=== PATIENT | male | born 1965 | race Caucasian/White ===

== ENCOUNTER 2019-04-06 09:00 | Emergency (ER) | payer OTHER ==
[~2019-04-06] VITALS: Ht 177.8 cm; Wt 97.5 kg
[~2019-04-06 09:00] MED LIST: CIALIS10 MG PO; FLEXERIL PO; GENTAMICIN SU3 MG/ML OPHTHALMIC; HYDROCODONE-AP1 EAC6 PO; IBUPROFEN 800800 M1 PO; LORTAB 5 MG/5001 TAB PO; NOHOMEMEDICATIONS; RELAFEN500 MG PO
[2019-04-06] MEDS ORDERED: BLOOD PRESSURE MED (09:09)
[2019-04-06] MEDS ORDERED: HYDROCODONE-AP1 EAC6 PO (09:57)
[2019-04-06 10:04] VITALS: BP 157/99
== END 2019-04-06 10:04 | disposition home or self-care (01) ==
LOC: M.ERS 09:00
DX: S61.012A Laceration without foreign body of left thumb without damage to nail, initial encounter (principal); I10 Essential (primary) hypertension; W26.9XXA Contact with unspecified sharp object(s), initial encounter; Y93.89 Activity, other specified; Y92.89 Other specified places as the place of occurrence of the external cause; Y99.8 Other external cause status

== ENCOUNTER 2021-02-25 19:10 | Inpatient (IN) | payer OTHER ==
[~2021-02-25] VITALS: Ht 180.3 cm; Wt 94.1 kg
[~2021-02-25 19:10] MED LIST changes: +BLOOD PRESSURE MED
[2021-02-25 19:14] VITALS: BP 174/93
[2021-02-25 19:49] LABS: ABSOLUTE EOSINOPHILS 0.2 thou/uL (0.0-0.7); ABSOLUTE NEUTROPHILS 4.7 thou/uL (1.6-8.1); BASOPHILS 0.5 %; EOSINOPHILS 1.8 %; HEMATOCRIT 43.7 % (42.0-52.0); HEMOGLOBIN 14.5 gm/dL (14.0-18.0); LYMPHOCYTES 33.1 %; MCH 27.9 pg (26.0-34.0); MCHC 33.2 g/dL (28.0-37.0); MONOCYTES 11.6 %; MPV 8.1 fl. (7.2-11.1); NUCLEATED RBCS 0 /100WBC; PLATELET COUNT* 274 thou/uL (150-400); RBC 5.21 mil/uL (4.50-6.00); RDW-CV 13.8 % (10.5-14.5); WBC 8.9 thou/uL (4.0-11.0)
[2021-02-25 20:03] LABS: CALCIUM 8.3 mg/dL (8.5-10.1); CREATININE 1.1 mg/dL (0.6-1.3); POTASSIUM 3.4 mmol/L (3.5-5.1)
[2021-02-25 20:07] LABS: ALBUMIN 3.9 g/dL (3.4-5.0); TOTAL BILIRUBIN 0.7 mg/dL (<0.1-1.0); TOTAL PROTEIN 7.4 g/dL (6.4-8.2)
[2021-02-25 20:55] LABS: APTT 21.4 Seconds (25.0-31.3); PROTIME 10.8 Seconds (9.20-11.50)
[2021-02-26 01:00] VITALS: BP 158/97
[2021-02-26 01:20] VITALS: BP 153/85
[2021-02-26 07:50] VITALS: BP 151/89
--- NOTE | 2021-02-26 09:53 | EKG ---
[place] [address] ELECTROCARDIOGRAM REPORT Name: YANCI MELOWilma PRATT Room: [address] ADM [place] .R.#: [id number] Admission: 02/26/21 Attend Phys: Dominique James, Discharge: Date of : 67 Date of Service: 02/25/21 2143 Report #: [id number] THIS REPORT FOR: //name// [facility] ED Test Date: 2021-02-25 Test Time: 21:43:24 Pat Name: YANCI EMLO Department: Room: [facility] Gender: M Labor Relations Analyst: DANNY : 1965 Requested By: Queenie Mosqueda Order Number: [id number] MD: Raffi Santiago Measurements Intervals [place] Rate: 62 P: 57 W[place]: 159 QRS: 29 QRSD: 102 T: 193 QT: 430 QTc: 437 Interpretive Statements Sinus rhythm Abnrm T, consider ischemia, anterolateral lds Baseline wander in lead(s) II,aVF Electronically Signed On 02-26-2021 9:52:54 CDT by Raffi Santiago [email or web address] <ELECTRONICALLY SIGNED> By: Raffi Santiago MD, [facility] 02/26/21 0952 2143 2143 Raffi Santiago MD, [facility] /EPI
--- NOTE | 2021-02-26 12:30 | EKG ---
[place] [address] ELECTROCARDIOGRAM REPORT Name: YANCI MELOWilma PRATT Room: [address] ADM IN ..#: [id number] Admission: 02/26/21 Attend Phys: Dominique James, Discharge: Date of : 67 Date of Service: 02/25/211911 Report #: [id number] THIS REPORT FOR: //name// 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: [place] : 1965 Requested By: Queenie Mosqueda Order Number: [id number] MD: Raffi Santiago Measurements Intervals [place] Rate: 74 P: 41 [place]: 167 QRS: 30 QRSD: 98 T: 206 QT: 385 QTc: 428 Interpretive Statements Sinus rhythm Left atrial enlargement Abnormal T, consider ischemia, diffuse leads No previous ECG available for comparison Electronically Signed On 02-26-2021 12:30:31 CDT by Raffi Santiago [email or web address] <ELECTRONICALLY SIGNED> By: Raffi Santiago MD, [facility] 02/26/21 1230 11 11 Raffi Santiago MD, [facility] /EPI
[2021-02-26] MEDS ORDERED: PROCARDIA XL30 MG PO (15:43)
[2021-02-26] MEDS ORDERED: HYDRALAZINE 5050 MG PO (15:43)
[2021-02-26] MEDS ORDERED: NORCO5 PO (15:44)
[2021-02-26 16:32] VITALS: BP 182/101
[2021-02-26 16:37] VITALS: BP 182/101
[2021-02-26 17:25] VITALS: BP 182/101
== END 2021-02-26 16:45 | disposition home or self-care (01) | DRG 645 ==
LOC: M.ERS 19:10 → M.TBA-ER 02-26 00:57 → M.ORTHSURG 02-26 00:57
PROVIDERS: Personal Emergency Response Attendant; ADMIT Internal Medicine; ATTEND Internal Medicine
DX: E27.49 Other adrenocortical insufficiency (principal); I10 Essential (primary) hypertension; E87.6 Hypokalemia; R58 Hemorrhage, not elsewhere classified; Z20.822 Contact with and (suspected) exposure to COVID-19; E27.8 Other specified disorders of adrenal gland; E66.3 Overweight; Z68.28 Body mass index [BMI] 28.0-28.9, adult